=== PATIENT | male | born 1935 | race Caucasian/White ===

== ENCOUNTER 2017-09-01 08:31 | Day surgery (SDC) | payer MEDICARE ==
[~2017-09-01 08:31] MED LIST: KETOROLAC TROMETHAMINE 0.45% 4 DROP/0.4 ML DROPERETTE OS PRN; MIDAZOLAM 2 MG/2 ML INJ ONE
[2017-09-01] MEDS ORDERED: CHONDR SU A NA/HYALUR INTRAOC KIT (SURGICARE) ONE (08:45)
[2017-09-01] MEDS ORDERED: EPINEPHRINE INJ/PF 1 MG/1 ML AMPULE ONE (08:45)
[2017-09-01] MEDS ORDERED: LIDOCAINE 1% INJ-PF (10 MG/ML) 30 ML SDV ONE (08:45)
[2017-09-01] MEDS: TETRACAINE HCL 0.5% OPH SOLN 2 ML OS PRN ×3 (09:02→09:33)
[2017-09-01] MEDS: TROPICAMIDE 1% OPH SOLN 3 ML OS PRN ×3 (09:03→09:22)
[2017-09-01] MEDS: CYCLOPENTOLATE 0.2%/PHENYLEPHRINE 1% OPH SOLN 2 ML OS PRN ×3 (09:03→09:22)
[2017-09-01] MEDS: BESIFLOXACIN HCL 0.6% OPH SUSP 5 ML BOTTLE OS PRN ×4 (09:03→09:59)
--- NOTE | 2017-09-01 14:54 | [facility] OPERATIVE REPORT E ---
[facility] Operative Report NAME: ELY ALVAREZ AGE: 82Y DATE OF SURGERY: 09/01/2017 ROOM: PREOPERATIVE DIAGNOSIS: CATARACT, LEFT EYE. POSTOPERATIVE DIAGNOSIS: CATARACT, LEFT EYE. OPERATION: Cataract extraction with intraocular lens implant of the left eye. SURGEON: TAMEKA LUKE M.D. ANESTHESIA: Topical. TISSUE REMOVED OR ALTERED: PROCEDURE: After obtaining appropriate consent, the patient's left eye was prepped and draped in sterile fashion as well as the surgeon in a sterile manner and cataract surgery was started. First a paracentesis blade was used to make a small side-port incision. Viscoelastic was used to inflate the anterior chamber. Next a 2.4 mm incision was made with the paracentesis blade. A continuous capsulorrhexis incision was made using a cystotome and Utrata forceps. Following this hydrodissection was carried out to make the lens fully loose and mobile and it was rotated 90 degrees. Following this, a eratri-tkp-fxlmyxm technique was used to phacoemulsify the lens with a CDE of 16.96. The remaining cortex was removed with irrigation/aspiration. Provisc was instilled into the capsular bag to inflate the bag. A SN60WF, 22.0 diopter lens was placed. The remaining viscoelastic material was removed with irrigation/aspiration. Following this, the incision was found to be watertight. Vigamox was instilled in the eye and a protective shield was placed over the eye. The patient returned to the postoperative recovery in stable condition. DICTATING PHYSICIAN: TAMEKA LUKE M.D. [id number] PHY#: [id number] ID: [id number] JOB#: [id number] ACCT: [id number] cc:TAMEKA LUKE M.D. > MTDD
--- NOTE | 2017-09-01 15:00 | [facility] DISCHARGE SUMMARY E ---
[facility] Discharge Summary NAME: ELY ALVAREZ AGE: 82Y ADMITTED: 09/01/2017 DISCHARGED: 09/01/2017 FINAL DIAGNOSIS: Cataract, left eye. HOSPITAL COURSE: This is an 82-year-old male who underwent cataract extraction of the left eye. He underwent surgery because he was having difficulty seeing words on the television. He should be on a regular diet. No bending at his waist, no heavy lifting. He should use his Besivance, Ilevro and Durezol at 3:00 p.m. and 8:00 p.m. Sleep with a rigid shield. I will see him for a 1-day postoperative tomorrow. DICTATING PHYSICIAN: TAMEKA LUKE M.D. [id number] PHY#: [id number] ID: [id number] JOB#: [id number] ACCT: [id number] cc:TAMEKA LUKE M.D. >
== END 2017-09-01 10:33 | disposition home or self-care (01) ==
LOC: SC 08:31
PROVIDERS: ATTEND Internal Medicine
DX: H25.813 Combined forms of age-related cataract, bilateral (principal); H53.001 Unspecified amblyopia, right eye; H11.003 Unspecified pterygium of eye, bilateral; H43.813 Vitreous degeneration, bilateral; I10 Essential (primary) hypertension; J44.9 Chronic obstructive pulmonary disease, unspecified; M19.90 Unspecified osteoarthritis, unspecified site; Z87.891 Personal history of nicotine dependence; Z79.82 Long term (current) use of aspirin; Z79.899 Other long term (current) drug therapy
CPT/HCPCS: 66984; V2632; J2250; J3490 ×2; A9270; J0171; 142

== ENCOUNTER 2017-09-20 07:51 | Day surgery (SDC) | payer MEDICARE ==
[~2017-09-20 07:51] MED LIST changes: +KETOROLAC TROMETHAMINE 0.45% 4 DROP/0.4 ML DROPERETTE OD PRN; -KETOROLAC TROMETHAMINE 0.45% 4 DROP/0.4 ML DROPERETTE OS PRN; -MIDAZOLAM 2 MG/2 ML INJ ONE
[2017-09-20] MEDS ORDERED: EPINEPHRINE INJ/PF 1 MG/1 ML AMPULE ONE (08:13)
[2017-09-20] MEDS ORDERED: CHONDR SU A NA/HYALUR INTRAOC KIT (SURGICARE) ONE (08:14)
[2017-09-20] MEDS ORDERED: LIDOCAINE 1% INJ-PF (10 MG/ML) 30 ML SDV ONE (08:14)
[2017-09-20] MEDS: TETRACAINE HCL 0.5% OPH SOLN 2 ML OD PRN ×3 (08:45→09:23)
[2017-09-20] MEDS: CYCLOPENTOLATE 0.2%/PHENYLEPHRINE 1% OPH SOLN 2 ML OD PRN ×3 (08:46→09:09)
[2017-09-20] MEDS: TROPICAMIDE 1% OPH SOLN 3 ML OD PRN ×3 (08:46→09:09)
[2017-09-20] MEDS: BESIFLOXACIN HCL 0.6% OPH SUSP 5 ML BOTTLE OD PRN ×4 (08:47→09:47)
[2017-09-20] MEDS ORDERED: MIDAZOLAM 2 MG/2 ML INJ ONE ×2 (09:01)
--- NOTE | 2017-09-20 15:04 | [facility] OPERATIVE REPORT E ---
[facility] Operative Report NAME: ELY ALVAREZ AGE: 82Y DATE OF SURGERY: 09/20/2017 ROOM: PREOPERATIVE DIAGNOSIS: CATARACT, RIGHT EYE. POSTOPERATIVE DIAGNOSIS: CATARACT, RIGHT EYE. OPERATION: Cataract extraction with insertion of an IOL of the right eye. SURGEON: TAMEKA LUKE M.D. ANESTHESIA: Topical. PROCEDURE: After obtaining appropriate consent, the patient's right eye was prepped and draped in sterile fashion as well as the surgeon in a sterile manner and cataract surgery was started. First a paracentesis blade was used to make a side-port incision. Viscoelastic was used to inflate the anterior chamber. Next a 2.4 mm incision was made with a 2.4 mm blade, clear corneal temporally. A continuous capsulorrhexis was made using a cystotome and Utrata forceps. Following this hydrodissection was carried out to make the lens fully loose and mobile and it was rotated 90 degrees. Following this, a aosedw-wmv-jnkqngr technique was used to phacoemulsify the lens with a CDE of 30.87. The remaining cortex was removed with irrigation/aspiration. Provisc was instilled into the capsular bag to inflate the bag. A SN60WF, 20.0 diopter lens was placed. The remaining viscoelastic material was removed with irrigation/aspiration. Following this, the incision was found to be watertight. Besivance was instilled into the eye and a protective shield was placed over the eye. The patient returned to the postoperative recovery in stable condition. DICTATING PHYSICIAN: TAMEKA LUKE M.D. [id number] PHY#: [id number] ID: [id number] JOB#: [id number] ACCT: [id number] cc:TAMEKA LUKE M.D. >
--- NOTE | 2017-09-20 15:05 | [facility] DISCHARGE SUMMARY E ---
[facility] Discharge Summary NAME: ELY ALVAREZ AGE: 82Y ADMITTED: 09/20/2017 DISCHARGED: 09/20/2017 DIAGNOSIS: Cataract, right eye. SUMMARY: This is an 82-year-old male who underwent cataract extraction of the right eye. He underwent surgery because he was having trouble seeing words on the television. DISCHARGE INSTRUCTIONS: He should be on a regular diet, no bending at his waist, and no heavy lifting. He should use his Besivance, Ilevro, and Durezol at 3 p.m. and 8 p.m. and sleep with a rigid shield. I will see him for his 1-day postoperative tomorrow. DICTATING PHYSICIAN: TAMEKA LUKE M.D. [id number] PHY#: [id number] ID: [id number] JOB#: [id number] ACCT: [id number] cc:TAMEKA LUKE M.D. >
== END 2017-09-20 10:23 | disposition home or self-care (01) ==
LOC: SC 07:51
PROVIDERS: ATTEND Internal Medicine
DX: H25.811 Combined forms of age-related cataract, right eye (principal); Z96.1 Presence of intraocular lens; Z79.82 Long term (current) use of aspirin
CPT/HCPCS: 66984; V2632; J2250; J3490 ×2; A9270; J0171; 142